=== PATIENT | male | born 1965 | race Caucasian/White ===

== ENCOUNTER 2018-06-05 07:00 | Inpatient (IN) | payer OTHER ==
[~2018-06-05] VITALS: Ht 182.9 cm; Wt 73.5 kg
== END 2018-06-11 12:02 | disposition home or self-care (01) | DRG 708 ==
LOC: SURH 06-09 07:00 → O/R 06-09 07:21 → SURH 06-09 13:33
PROVIDERS: Urology
PROC: 07TC0ZZ Resection of Pelvis Lymphatic, Open Approach (ICD-10-PCS; 2018-06-09)
PROC: 0VT00ZZ Resection of Prostate, Open Approach (ICD-10-PCS; principal; 2018-06-09 07:00)
DX: C61 Malignant neoplasm of prostate (principal)

== ENCOUNTER 2019-12-17 09:30 | Outpatient (CLI) | payer OTHER | END 2019-12-17 09:40 | disposition home or self-care (01) | LOC: LAB 09:30 | DX: J11.1 Influenza due to unidentified influenza virus with other respiratory manifestations (principal) ==

== ENCOUNTER 2020-04-27 07:06 | Outpatient (CLI) | payer OTHER | END 2020-04-27 07:18 | disposition home or self-care (01) | LOC: LAB 07:06 | PROVIDERS: ATTEND Internal Medicine Cardiovascular Disease | DX: I20.8 Other forms of angina pectoris (principal); R06.09 Other forms of dyspnea; E78.00 Pure hypercholesterolemia, unspecified ==

== ENCOUNTER 2022-02-06 08:29 | Day surgery (SDC) | payer OTHER ==
[2022-02-06] MEDS ORDERED: ACETAMINOPHEN-1 EAC2 PO (18:12)
== END 2022-02-06 21:50 | disposition home or self-care (01) ==
LOC: CIR.AMB 08:29
PROVIDERS: ATTEND Surgery
DX: N52.01 Erectile dysfunction due to arterial insufficiency (principal); Z20.822 Contact with and (suspected) exposure to COVID-19; E78.00 Pure hypercholesterolemia, unspecified; Z86.16 Personal history of COVID-19
CPT/HCPCS: 54405; C1813